=== PATIENT | female | born 1930 | race Caucasian/White ===

== ENCOUNTER → 2016-05-17 | Outpatient (CLI) | payer MEDICARE, BC ==
[~2016-05-17] MED LIST: ALDACTONE50 MG PO; ALMACONE 360 M360 ML PO; ANTIVERT 12.512.5 MG PO; ANUSOL-HC SUPPO25 MG RC; ASPIRIN 81M81 MG/TA2 PO; CARDIZEM CD 12120 MG PO; CARDURA 1MG1 MG PO; CARDURA 2MG2 MG PO; CORDARONE200 MG/TAB PO; DIOVAN HCT 25 M1 TA1 PO; DULCOLAX S10 MG/SUPP RC; FERROUS SU325 MG/TAB PO; FOSAMAX 70MG TA70 MG PO; HCTZ12.5TAB PO; IMODIUM 2MG CAPS2 MG PO; LASIX 20MG TABL20 MG PO; LOPRESSOR100 MG PO; MILK OF MA400 MG/52; NEURONTIN300 MG/CAP PO; NORVASC 5MG5 MG/TAB PO; PACERONE200 MG PO; PROAIR HFA0.09 MG/AC IH; PROTONIX 40MG T40 MG PO; SYNTHROID0.05 MG/TA PO; TOPROL XL100 MG PO; TRIAMC 0.1 454 TOP; TYLENOL 325MG325 MG PO; TYLENOL SU650 MG/SUP RC; XALATAN EYE DROPS OU; XARELTO STARTER20 MG PO; XARELTO20 MG PO; ZOFRAN ODT4 MG PO
== END ==
LOC: COL.VAS 12:36
DX: I87.2 Venous insufficiency (chronic) (peripheral) (principal); M79.662 Pain in left lower leg; M79.661 Pain in right lower leg; M79.89 Other specified soft tissue disorders

== ENCOUNTER 2016-06-18 17:55 | Inpatient (IN) | payer MEDICARE, BC ==
[~2016-06-18] VITALS: Ht 157.5 cm; Wt 78.4 kg
[2016-06-18] VITALS (118 sets, daily range): BP systolic 108; BP diastolic 91; PULSE 107; TEMP 97.6; O2SAT 90–96
[~2016-06-18 17:55] MED LIST changes: -ALDACTONE50 MG PO; -ALMACONE 360 M360 ML PO; -ANTIVERT 12.512.5 MG PO; -ANUSOL-HC SUPPO25 MG RC; -CARDIZEM CD 12120 MG PO; -CARDURA 1MG1 MG PO; -CORDARONE200 MG/TAB PO; -DULCOLAX S10 MG/SUPP RC; -FERROUS SU325 MG/TAB PO; -FOSAMAX 70MG TA70 MG PO; -HCTZ12.5TAB PO; -IMODIUM 2MG CAPS2 MG PO; -LASIX 20MG TABL20 MG PO; -LOPRESSOR100 MG PO; -MILK OF MA400 MG/52; -NEURONTIN300 MG/CAP PO; -PACERONE200 MG PO; -PROAIR HFA0.09 MG/AC IH; -PROTONIX 40MG T40 MG PO; -SYNTHROID0.05 MG/TA PO; -TRIAMC 0.1 454 TOP; -TYLENOL 325MG325 MG PO; -TYLENOL SU650 MG/SUP RC; -XARELTO STARTER20 MG PO; -XARELTO20 MG PO; -ZOFRAN ODT4 MG PO
[2016-06-18 18:41] LABS: BASO % 0.2 % (0.0-2.0); EOS # 0.1 (0.0-0.7); EOS % 0.8 % (0-4.0); GRAN # 7.9 (1.4-6.5); GRAN % 70.2 % (42.2-75.2); HEMATOCRIT 39.4 % (37.0-47.0); HEMOGLOBIN 12.8 g/dl (12.5-16.0); LYMPH # 2.1 (1.2-3.4); LYMPH % 18.3 % (20.0-51.0); MEAN CELL VOLUME 89 fl (80.0-100.0); MEAN CORPUSCULAR HEMOGLOBIN 29 pg (27.0-31.0); MEAN CORPUSCULAR HGB CONC 33 g/dl (33.0-37.0); MEAN PLATELET VOLUME 12.3 fl (7.4-10.4); MONO # 1.1 (0.1-0.6); MONO % 10.1 % (1.7-9.3); PLATELET COUNT 162 K/mm3 (130-400); RED BLOOD COUNT 4.44 M/mm3 (4.10-5.30); REDCELL DISTRIBUTION WIDTH-CV 16.4 % (11.5-14.5); WHITE BLOOD COUNT 11.2 K/mm3 (4.8-10.8)
[2016-06-18 18:45] LABS: INR 1.5 (0.8-3.0); PROTHROMBIN TIME 16.5 SECONDS (9.7-12.8)
[2016-06-18 18:48] LABS: PARTIAL THROMBOPLASTIN TIME 30.5 SECONDS (26.0-37.0)
[2016-06-18 18:52] LABS: ALBUMIN 3.9 gm/dL (3.5-5.0); BILIRUBIN,TOTAL 1.2 mg/dL (0.0-1.0); CALCIUM 8.9 mg/dL (8.4-10.2); CREATININE, serum 1.24 mg/dL (0.52-1.25); POTASSIUM 4.5 mmol/L (3.4-5.0); TOTAL PROTEIN 7.9 gm/dL (6.4-8.2)
[2016-06-18] MEDS ORDERED: SYNTHROID0.05 MG/TA PO (18:54)
[2016-06-18] MEDS ORDERED: LOPRESSOR100 MG PO (18:54)
[2016-06-18] MEDS ORDERED: CARDURA 1MG1 MG PO (18:55)
[2016-06-18] MEDS ORDERED: ALDACTONE50 MG PO (18:56)
[2016-06-18] MEDS ORDERED: FOSAMAX 70MG TA70 MG PO (18:56)
[2016-06-18 19:06] LABS: TROPONIN-I 0.057 ng/mL (0.000-0.034)
[2016-06-18 19:22] LABS: THYROID STIMULATING HORMONE 2.55 uIU/mL (0.465-4.680)
[2016-06-18 23:26] LABS: PH 5 (5-8); URINE APPEARANCE Clear; URINE BACTERIA None Seen /hpf; URINE BILIRUBIN Negative (NEGATIVE); URINE BLOOD 1+ (NEGATIVE); URINE COLOR Yellow; URINE GLUCOSE Negative (NEGATIVE); URINE KETONE Negative (NEGATIVE); URINE UROBILINOGEN Negative (NEGATIVE)
[2016-06-19] VITALS (705 sets, daily range): BP systolic 92–145; BP diastolic 54–92; PULSE 97–130; TEMP 97.6–98.7; O2SAT 77–98
[2016-06-19 06:24] LABS: INR 1.4 (0.8-3.0); PROTHROMBIN TIME 15.8 SECONDS (9.7-12.8)
[2016-06-19 06:31] LABS: CALCIUM 9.1 mg/dL (8.4-10.2); CREATININE, serum 0.97 mg/dL (0.52-1.25); POTASSIUM 4.3 mmol/L (3.4-5.0)
[2016-06-19] MEDS ORDERED: TRIAMC 0.1 454 TOP (23:08)
[2016-06-20] VITALS (474 sets, daily range): BP systolic 109–140; BP diastolic 51–104; PULSE 59–113; TEMP 97.4–98.3; O2SAT 74–100
[2016-06-20 06:00] LABS: BASO % 0.2 % (0.0-2.0); EOS # 0.2 (0.0-0.7); EOS % 2.4 % (0-4.0); GRAN # 5.3 (1.4-6.5); GRAN % 64.5 % (42.2-75.2); LYMPH # 1.8 (1.2-3.4); LYMPH % 22.1 % (20.0-51.0); MEAN CELL VOLUME 91 fl (80.0-100.0); MEAN CORPUSCULAR HEMOGLOBIN 29 pg (27.0-31.0); MEAN CORPUSCULAR HGB CONC 32 g/dl (33.0-37.0); MEAN PLATELET VOLUME 11.4 fl (7.4-10.4); MONO # 0.8 (0.1-0.6); MONO % 10.2 % (1.7-9.3); PLATELET COUNT 167 K/mm3 (130-400); RED BLOOD COUNT 4.09 M/mm3 (4.10-5.30); REDCELL DISTRIBUTION WIDTH-CV 16.5 % (11.5-14.5); WHITE BLOOD COUNT 8.2 K/mm3 (4.8-10.8)
[2016-06-20 06:01] LABS: HEMOGLOBIN 11.7 g/dl (12.5-16.0)
[2016-06-20 06:11] LABS: CALCIUM 8.6 mg/dL (8.4-10.2); CREATININE, serum 1.02 mg/dL (0.52-1.25); POTASSIUM 4.1 mmol/L (3.4-5.0)
[2016-06-20 06:59] LABS: INR 1.6 (0.8-3.0); PROTHROMBIN TIME 17.5 SECONDS (9.7-12.8)
[2016-06-21] VITALS (1125 sets, daily range): BP systolic 119–156; BP diastolic 64–86; PULSE 58–85; TEMP 97.4–98.1; O2SAT 76–97
[2016-06-21 07:01] LABS: BASO % 0.4 % (0.0-2.0); EOS # 0.2 (0.0-0.7); EOS % 2.6 % (0-4.0); GRAN % 64.7 % (42.2-75.2); HEMATOCRIT 37.2 % (37.0-47.0); LYMPH # 1.8 (1.2-3.4); LYMPH % 22.7 % (20.0-51.0); MEAN CELL VOLUME 92 fl (80.0-100.0); MEAN CORPUSCULAR HEMOGLOBIN 29 pg (27.0-31.0); MEAN CORPUSCULAR HGB CONC 32 g/dl (33.0-37.0); MEAN PLATELET VOLUME 12.1 fl (7.4-10.4); MONO # 0.7 (0.1-0.6); PLATELET COUNT 187 K/mm3 (130-400); RED BLOOD COUNT 4.06 M/mm3 (4.10-5.30); REDCELL DISTRIBUTION WIDTH-CV 16.5 % (11.5-14.5); WHITE BLOOD COUNT 7.8 K/mm3 (4.8-10.8)
[2016-06-21 07:02] LABS: INR 2.4 (0.8-3.0); PROTHROMBIN TIME 27.2 SECONDS (9.7-12.8)
[2016-06-21 07:05] LABS: HEMOGLOBIN 11.7 g/dl (12.5-16.0)
[2016-06-21 07:07] LABS: CALCIUM 8.7 mg/dL (8.4-10.2); CREATININE, serum 1.04 mg/dL (0.52-1.25); POTASSIUM 4.1 mmol/L (3.4-5.0)
[2016-06-22] VITALS (661 sets, daily range): BP systolic 122–166; BP diastolic 62–83; PULSE 67–97; TEMP 97.1–100.5; O2SAT 70–100
[2016-06-22 05:58] LABS: INR 2.9 (0.8-3.0); PROTHROMBIN TIME 33.6 SECONDS (9.7-12.8)
[2016-06-22 11:51] LABS: ARTERIAL BLD GAS O2 SATURATION 95.5 % (92-100); ARTERIAL BLD GAS TCO2 CT 27.7; ARTERIAL BLOOD GAS BASE EXCESS 0.3 (-2-2); ARTERIAL BLOOD GAS HCO3 26.3 meq/L (22-26); ARTERIAL BLOOD GAS PO2 83.9 mmHg (80-100); ARTERIAL BLOOD GAS pH 7.36 (7.35-7.45); OXYHEMOGLOBIN 94.8 %
[2016-06-22 11:52] LABS: ATS? YES
[2016-06-23] VITALS (1082 sets, daily range): BP systolic 127–171; BP diastolic 56–80; PULSE 79–89; TEMP 97–98.7; O2SAT 86–99
[2016-06-23 05:57] LABS: PROTHROMBIN TIME 58.4 SECONDS (9.7-12.8)
[2016-06-24] VITALS (1025 sets, daily range): BP systolic 118–149; BP diastolic 61–75; PULSE 68–82; TEMP 97.5–98.9; O2SAT 45–100
[2016-06-24 01:48] LABS: PH 5 (5-8); URINE APPEARANCE Hazy; URINE BACTERIA None Seen /hpf; URINE BILIRUBIN Negative (NEGATIVE); URINE BLOOD Negative (NEGATIVE); URINE COLOR Yellow; URINE GLUCOSE Negative (NEGATIVE); URINE KETONE Negative (NEGATIVE); URINE UROBILINOGEN >=4.0 mg/dL (NEGATIVE)
[2016-06-24 07:23] LABS: INR 3.8 (0.8-3.0); PROTHROMBIN TIME 44.2 SECONDS (9.7-12.8)
[2016-06-25] VITALS (539 sets, daily range): BP systolic 97–171; BP diastolic 61–88; PULSE 66–100; TEMP 97.6–98.6; O2SAT 31–100
[2016-06-25 06:22] LABS: HEMATOCRIT 41.1 % (37.0-47.0); HEMOGLOBIN 12.9 g/dl (12.5-16.0); MEAN CELL VOLUME 91 fl (80.0-100.0); MEAN CORPUSCULAR HEMOGLOBIN 29 pg (27.0-31.0); MEAN CORPUSCULAR HGB CONC 31 g/dl (33.0-37.0); MEAN PLATELET VOLUME 10.9 fl (7.4-10.4); PLATELET COUNT 248 K/mm3 (130-400); RED BLOOD COUNT 4.53 M/mm3 (4.10-5.30); REDCELL DISTRIBUTION WIDTH-CV 16.3 % (11.5-14.5); WHITE BLOOD COUNT 9.7 K/mm3 (4.8-10.8)
[2016-06-25 06:25] LABS: ADD PATHOLOGY DIFF REVIEW NO
[2016-06-25 06:31] LABS: INR 2.5 (0.8-3.0); PROTHROMBIN TIME 28.8 SECONDS (9.7-12.8)
[2016-06-25 06:33] LABS: ADJUSTED CALCIUM 9.6 mg/dL (8.4-10.2); ALBUMIN 3.4 gm/dL (3.5-5.0); BILIRUBIN,TOTAL 0.8 mg/dL (0.0-1.0); CALCIUM 9.1 mg/dL (8.4-10.2); CREATININE, serum 1.03 mg/dL (0.52-1.25); TOTAL PROTEIN 7.5 gm/dL (6.4-8.2)
[2016-06-25 09:11] LABS: BAND 2 % (0-10); BASOPHIL 1 % (0-2); EOSINOPHIL 3 % (0-4); METAMYELOCYTE 1 % (0-0); MYELOCYTE 2 % (0-0); NEUTROPHILS 71 % (42.0-75.2); PLATELET ESTIMATE NORMAL (NORMAL); TOTAL CELLS COUNTED 100
[2016-06-25 09:13] LABS: ANISOCYTOSIS 1+; POLYCHROMASIA 1+
[2016-06-26] VITALS (7 sets, daily range): BP systolic 124–154; BP diastolic 56–70; PULSE 67–116; TEMP 97.2–98.8
[2016-06-27 03:01] VITALS: BP 118/63; PULSE 79; TEMP 98.5
[2016-06-27 08:53] VITALS: BP 135/69; PULSE 78; TEMP 96.4
[2016-06-27 12:33] VITALS: BP 142/79; PULSE 68; TEMP 96.5
[2016-06-27 16:03] VITALS: BP 147/69; PULSE 79; TEMP 98.1
[2016-06-27 19:52] VITALS: BP 141/66; PULSE 75; TEMP 97.5
[2016-06-27 23:26] VITALS: BP 121/58; PULSE 73; TEMP 97.9
[2016-06-28 03:47] VITALS: BP 144/63; PULSE 65; TEMP 97.7
[2016-06-28 08:42] VITALS: BP 144/71; PULSE 83; TEMP 98.7
[2016-06-28 12:24] VITALS: BP 133/62; PULSE 76; TEMP 96
[2016-06-28 12:54] LABS: HEMATOCRIT 42.7 % (37.0-47.0); HEMOGLOBIN 13.7 g/dl (12.5-16.0); MEAN CELL VOLUME 89 fl (80.0-100.0); MEAN CORPUSCULAR HEMOGLOBIN 29 pg (27.0-31.0); MEAN CORPUSCULAR HGB CONC 32 g/dl (33.0-37.0); MEAN PLATELET VOLUME 10.7 fl (7.4-10.4); PLATELET COUNT 266 K/mm3 (130-400); RED BLOOD COUNT 4.81 M/mm3 (4.10-5.30); REDCELL DISTRIBUTION WIDTH-CV 16.2 % (11.5-14.5); WHITE BLOOD COUNT 8.8 K/mm3 (4.8-10.8)
[2016-06-28 12:56] LABS: ADD PATHOLOGY DIFF REVIEW NO
[2016-06-28 12:57] LABS: CALCIUM 9.3 mg/dL (8.4-10.2); CREATININE, serum 1.04 mg/dL (0.52-1.25); MAGNESIUM 1.9 mg/dL (1.6-2.3)
[2016-06-28 13:32] LABS: BAND 2 % (0-10); BASOPHIL 1 % (0-2); EOSINOPHIL 1 % (0-4); NEUTROPHILS 72 % (42.0-75.2); TOTAL CELLS COUNTED 100
[2016-06-28 13:35] LABS: HYPOCHROMIA 1+; MICROCYTOSIS 1+; POLYCHROMASIA 1+; STOMATOCYTE 1+
[2016-06-28 15:32] VITALS: BP 139/76; PULSE 70; TEMP 96.5
[2016-06-28 19:55] VITALS: BP 145/67; PULSE 71; TEMP 97.8
[2016-06-28 23:49] VITALS: BP 133/60; PULSE 64; TEMP 97.4
[2016-06-29 03:45] VITALS: BP 129/58; PULSE 46; TEMP 98.5
[2016-06-29 07:15] VITALS: BP 129/81; PULSE 85; TEMP 96.3
[2016-06-29 11:33] VITALS: BP 147/72; PULSE 42; TEMP 97.6
[2016-06-29 15:58] VITALS: BP 137/69; PULSE 76; TEMP 97.2
[2016-06-29 20:30] VITALS: BP 122/45; PULSE 80; TEMP 98
[2016-06-29 23:55] VITALS: BP 125/44; PULSE 38; TEMP 98.2
[2016-06-30 03:17] VITALS: BP 158/85; PULSE 55; TEMP 97.6
[2016-06-30 07:35] VITALS: BP 146/42; PULSE 40; TEMP 98.2
[2016-06-30 11:37] VITALS: BP 105/79; PULSE 81; TEMP 97.7
[2016-06-30 14:53] VITALS: BP 113/87; PULSE 105; TEMP 97.3
[2016-06-30 20:32] VITALS: BP 150/58; PULSE 63; TEMP 97.4
[2016-07-01 00:46] VITALS: BP 127/62; PULSE 67; TEMP 97.6
[2016-07-01 05:44] VITALS: BP 142/75; PULSE 70; TEMP 97.9
[2016-07-01 07:32] VITALS: BP 143/61; PULSE 62; TEMP 96.8
[2016-07-01 11:02] VITALS: BP 136/60; PULSE 68
[2016-07-01] MEDS ORDERED: PACERONE200 MG PO (15:37)
[2016-07-01] MEDS ORDERED: CARDIZEM CD 12120 MG PO (15:39)
[2016-07-01] MEDS ORDERED: LASIX 20MG TABL20 MG PO (15:44)
[2016-07-01] MEDS ORDERED: XARELTO STARTER20 MG PO (15:49)
[2016-07-01] MEDS ORDERED: PROAIR HFA0.09 MG/AC IH (15:58)
[2016-07-01 16:16] VITALS: BP 136/60; PULSE 68; TEMP 96.8
[2016-07-03 14:13] LABS: FACTOR V LEIDEN MUTATION B Negative (Negative); PT G20210A MUTATION B Negative (Negative)
[2016-07-04 14:23] LABS: .ANTICARDIOLIPIN IGG <9.4 GPL (()); .ANTICARDIOLIPIN IGM 10.6 MPL (())
[2016-07-05 19:13] LABS: BETA-2 GPI IGM AABS 10.3 U/mL (())
[2016-07-05 19:17] LABS: BETA-2 GPI IGG AABS <9.4 U/mL (())
[2016-07-20] MEDS ORDERED: ZOFRAN ODT4 MG PO (10:47)
[2016-07-20] MEDS ORDERED: ANTIVERT 12.512.5 MG PO (10:48)
[2016-07-20] MEDS ORDERED: CARDIZEM CD 12120 MG PO (10:50)
[2016-07-20] MEDS ORDERED: XARELTO20 MG PO (10:50)
[2016-07-20] MEDS ORDERED: CORDARONE200 MG/TAB PO (10:50)
== END 2016-07-01 17:09 | DRG 175 ==
LOC: COL.ER 17:55 → IMCU 19:20 → ICU 19:20 → IMCU 20:30 → ICU 06-22 16:00 → IMCU 06-23 14:17 → MEDICAL 06-25 15:55
PROVIDERS: Family Medicine; Internal Medicine; Internal Medicine Interventional Cardiology
PROC: 5A2204Z Restoration of Cardiac Rhythm, Single (ICD-10-PCS; principal; 2016-06-20)
DX: I26.99 Other pulmonary embolism without acute cor pulmonale (principal); J96.01 Acute respiratory failure with hypoxia; I50.33 Acute on chronic diastolic (congestive) heart failure; I82.431 Acute embolism and thrombosis of right popliteal vein; I48.92 Unspecified atrial flutter; Z66 Do not resuscitate; I48.91 Unspecified atrial fibrillation; I11.0 Hypertensive heart disease with heart failure; K76.1 Chronic passive congestion of liver; E88.09 Other disorders of plasma-protein metabolism, not elsewhere classified
CPT/HCPCS: 99223-AI; 99232-AI; 99233-AI; 99239; A9284; G9654; J0282; J1650; J2704; J2765; J7050; J7060; Q9967

== ENCOUNTER 2016-07-09 11:13 | Emergency (ER) | payer MEDICARE, BC ==
[~2016-07-09] VITALS: Ht 157.5 cm; Wt 81.4 kg
[2016-07-09 11:13] VITALS: TEMP 97
[~2016-07-09 11:13] MED LIST changes: +ALDACTONE50 MG PO; +CARDIZEM CD 12120 MG PO; +CARDURA 1MG1 MG PO; +FOSAMAX 70MG TA70 MG PO; +LASIX 20MG TABL20 MG PO; +LOPRESSOR100 MG PO; +PACERONE200 MG PO; +PROAIR HFA0.09 MG/AC IH; +SYNTHROID0.05 MG/TA PO; +TRIAMC 0.1 454 TOP; +XARELTO STARTER20 MG PO
[2016-07-09 12:14] LABS: ADJUSTED CALCIUM 9.1 mg/dL (8.4-10.2); ALANINE AMINOTRANSFERASE 38 U/L (9-52); ALBUMIN 3.7 gm/dL (3.5-5.0); ALKALINE PHOSPHATASE 64 U/L (50-136); ANION GAP 12 mmol/L (7-16); BASO % 0.4 % (0.0-2.0); BILIRUBIN,TOTAL 0.8 mg/dL (0.0-1.0); BLOOD UREA NITROGEN 14 mg/dL (7-17); CALCIUM 8.9 mg/dL (8.4-10.2); CARBON DIOXIDE 27 mmol/L (22-30); CHLORIDE 103 mmol/L (98-107); CREATININE, serum 0.86 mg/dL (0.52-1.25); EOS # 0.1 (0.0-0.7); EOS % 1.3 % (0-4.0); GLUCOSE 137 mg/dL (74-106); GRAN # 5.5 (1.4-6.5); GRAN % 77.8 % (42.2-75.2); MAGNESIUM 1.6 mg/dL (1.6-2.3); MEAN CELL VOLUME 90 fl (80.0-100.0); MEAN CORPUSCULAR HGB CONC 32 g/dl (33.0-37.0); MONO # 0.4 (0.1-0.6); MONO % 5.6 % (1.7-9.3); PHOSPHOROUS 3.5 mg/dL (2.5-4.5); PLATELET COUNT 162 K/mm3 (130-400); RED BLOOD COUNT 3.96 M/mm3 (4.10-5.30); REDCELL DISTRIBUTION WIDTH-CV 17.5 % (11.5-14.5); SODIUM 142 mmol/L (137-145); TOTAL PROTEIN 7.7 gm/dL (6.4-8.2)
[2016-07-09 12:15] LABS: HEMATOCRIT 35.8 % (37.0-47.0); HEMOGLOBIN 11.4 g/dl (12.5-16.0); MEAN CORPUSCULAR HEMOGLOBIN 29 pg (27.0-31.0)
[2016-07-09 12:26] LABS: B-TYPE NATRIURETIC PEPTIDE 849 pg/mL (0-450)
[2016-07-09 12:27] LABS: TROPONIN-I < 0.012 ng/mL (0.000-0.034)
[2016-07-09 12:35] LABS: INR 3.2 (0.8-3.0)
[2016-07-09 12:37] LABS: PARTIAL THROMBOPLASTIN TIME 41.4 SECONDS (26.0-37.0)
[2016-07-09] MEDS ORDERED: PROAIR HFA0.09 MG/AC IH (12:38)
[2016-07-09] MEDS ORDERED: ALMACONE 360 M360 ML PO (12:39)
[2016-07-09] MEDS ORDERED: ALDACTONE50 MG PO (12:39)
[2016-07-09] MEDS ORDERED: MILK OF MA400 MG/52 (12:39)
[2016-07-09] MEDS ORDERED: TYLENOL SU650 MG/SUP RC (12:40)
[2016-07-09] MEDS ORDERED: DULCOLAX S10 MG/SUPP RC (12:40)
[2016-07-09] MEDS ORDERED: TYLENOL 325MG325 MG PO (12:41)
[2016-07-09] MEDS ORDERED: IMODIUM 2MG CAPS2 MG PO (12:41)
[2016-07-09 13:46] LABS: PH 5 (5-8); SQUAMOUS EPITHELIAL 0-2 /hpf; URINE APPEARANCE Clear; URINE BACTERIA None Seen /hpf; URINE BILIRUBIN Negative (NEGATIVE); URINE BLOOD 1+ (NEGATIVE); URINE COLOR Yellow; URINE GLUCOSE Negative (NEGATIVE); URINE KETONE Negative (NEGATIVE); URINE RBC 0-2 /hpf; URINE UROBILINOGEN Negative (NEGATIVE); URINE WBC 0-2 /hpf
[2016-07-09] MEDS ORDERED: ZOFRAN ODT4 MG PO (16:09)
[2016-07-09] MEDS ORDERED: ANTIVERT 12.512.5 MG PO (16:09)
[2016-07-09 16:44] VITALS: BP 161/83; PULSE 66
[2016-07-20] MEDS ORDERED: ZOFRAN ODT4 MG PO (10:47)
[2016-07-20] MEDS ORDERED: ANTIVERT 12.512.5 MG PO (10:48)
[2016-07-20] MEDS ORDERED: XARELTO20 MG PO (10:50)
[2016-07-20] MEDS ORDERED: CORDARONE200 MG/TAB PO (10:50)
[2016-07-20] MEDS ORDERED: CARDIZEM CD 12120 MG PO (10:50)
== END 2016-07-09 16:43 | disposition home or self-care (01) ==
LOC: COL.ER 11:13
PROVIDERS: Emergency Medicine
DX: R42 Dizziness and giddiness (principal); R11.2 Nausea with vomiting, unspecified; Z86.711 Personal history of pulmonary embolism; Z79.01 Long term (current) use of anticoagulants; I48.91 Unspecified atrial fibrillation; I50.9 Heart failure, unspecified
CPT/HCPCS: J2405

== ENCOUNTER → 2016-07-20 | Outpatient (CLI) | payer MEDICARE, BC ==
[~2016-07-20] MED LIST changes: +ALMACONE 360 M360 ML PO; +ANTIVERT 12.512.5 MG PO; +ANUSOL-HC SUPPO25 MG RC; +CORDARONE200 MG/TAB PO; +DULCOLAX S10 MG/SUPP RC; +FERROUS SU325 MG/TAB PO; +HCTZ12.5TAB PO; +IMODIUM 2MG CAPS2 MG PO; +MILK OF MA400 MG/52; +NEURONTIN300 MG/CAP PO; +PROTONIX 40MG T40 MG PO; +TYLENOL 325MG325 MG PO; +TYLENOL SU650 MG/SUP RC; +XARELTO20 MG PO; +ZOFRAN ODT4 MG PO
== END ==
LOC: COL.RAD 09:55
DX: Z86.718 Personal history of other venous thrombosis and embolism (principal); Z86.711 Personal history of pulmonary embolism
CPT/HCPCS: Q9967

== ENCOUNTER 2016-07-27 11:24 | Inpatient (IN) | payer MEDICARE, BC ==
[2016-07-27] VITALS (125 sets, daily range): BP systolic 109–135; BP diastolic 40–72; PULSE 83–139; TEMP 96.8–98.1; O2SAT 88–100
[~2016-07-27] VITALS: Ht 157.5 cm; Wt 78.0 kg
[~2016-07-27 11:24] MED LIST changes: -ANUSOL-HC SUPPO25 MG RC; -FERROUS SU325 MG/TAB PO; -HCTZ12.5TAB PO; -NEURONTIN300 MG/CAP PO; -PROTONIX 40MG T40 MG PO
[2016-07-27 13:37] LABS: MEAN CELL VOLUME 94 fl (80.0-100.0); MEAN CORPUSCULAR HGB CONC 32 g/dl (33.0-37.0); MEAN PLATELET VOLUME 10.8 fl (7.4-10.4); PLATELET COUNT 236 K/mm3 (130-400); RED BLOOD COUNT 2.57 M/mm3 (4.10-5.30); REDCELL DISTRIBUTION WIDTH-CV 19.7 % (11.5-14.5); WHITE BLOOD COUNT 11.7 K/mm3 (4.8-10.8)
[2016-07-27 13:40] LABS: INR 1.8 (0.8-3.0); PROTHROMBIN TIME 20.4 SECONDS (9.7-12.8)
[2016-07-27 13:42] LABS: HEMATOCRIT 24.1 % (37.0-47.0); HEMOGLOBIN 7.7 g/dl (12.5-16.0); MEAN CORPUSCULAR HEMOGLOBIN 30 pg (27.0-31.0)
[2016-07-27 13:57] LABS: ADJUSTED CALCIUM 8.8 mg/dL (8.4-10.2); ALBUMIN 3.7 gm/dL (3.5-5.0); BILIRUBIN,TOTAL 0.6 mg/dL (0.0-1.0); CALCIUM 8.6 mg/dL (8.4-10.2); CREATININE, serum 1.62 mg/dL (0.52-1.25); TOTAL PROTEIN 6.9 gm/dL (6.4-8.2)
[2016-07-27 16:18] LABS: HYALINE CAST >12 /lpf; PH 5 (5-8); SQUAMOUS EPITHELIAL 0-2 /hpf; URINE APPEARANCE Hazy; URINE BACTERIA Rare /hpf; URINE BILIRUBIN Negative (NEGATIVE); URINE BLOOD Negative (NEGATIVE); URINE COLOR Yellow; URINE GLUCOSE Negative (NEGATIVE); URINE KETONE Negative (NEGATIVE); URINE RBC 0-2 /hpf; URINE UROBILINOGEN Negative (NEGATIVE)
[2016-07-27 17:02] LABS: HEMOGLOBIN 7.3 g/dl (12.5-16.0)
[2016-07-27 17:03] LABS: HEMATOCRIT 23.8 % (37.0-47.0)
[2016-07-28] VITALS (490 sets, daily range): BP systolic 98–143; BP diastolic 55–101; PULSE 68–129; TEMP 96.7–97.4; O2SAT 85–100
[2016-07-28 01:02] LABS: HEMATOCRIT 21.8 % (37.0-47.0); HEMOGLOBIN 6.7 g/dl (12.5-16.0)
[2016-07-28 06:23] LABS: HEMATOCRIT 26.1 % (37.0-47.0); HEMOGLOBIN 8.1 g/dl (12.5-16.0)
[2016-07-28 12:35] LABS: HEMATOCRIT 26.2 % (37.0-47.0); HEMOGLOBIN 8.1 g/dl (12.5-16.0)
[2016-07-28 14:47] LABS: INR 1.3 (0.8-3.0); PROTHROMBIN TIME 14.7 SECONDS (9.7-12.8)
[2016-07-29] VITALS (616 sets, daily range): BP systolic 110–153; BP diastolic 58–76; PULSE 55–112; TEMP 97.3–98.3; O2SAT 72–100
[2016-07-29 06:02] LABS: MEAN CELL VOLUME 98 fl (80.0-100.0); MEAN CORPUSCULAR HGB CONC 30 g/dl (33.0-37.0); MEAN PLATELET VOLUME 10.6 fl (7.4-10.4); PLATELET COUNT 183 K/mm3 (130-400); RED BLOOD COUNT 2.48 M/mm3 (4.10-5.30); REDCELL DISTRIBUTION WIDTH-CV 19.1 % (11.5-14.5); WHITE BLOOD COUNT 12.5 K/mm3 (4.8-10.8)
[2016-07-29 06:16] LABS: CALCIUM 7.2 mg/dL (8.4-10.2); CREATININE, serum 1.06 mg/dL (0.52-1.25); HEMATOCRIT 24.4 % (37.0-47.0); HEMOGLOBIN 7.4 g/dl (12.5-16.0); MEAN CORPUSCULAR HEMOGLOBIN 30 pg (27.0-31.0); POTASSIUM 4.8 mmol/L (3.4-5.0)
[2016-07-29 06:17] LABS: ADD PATHOLOGY DIFF REVIEW NO
[2016-07-29 06:52] LABS: ANISOCYTOSIS 1+; BAND 16 % (0-10); METAMYELOCYTE 1 % (0-0); NEUTROPHILS 79 % (42.0-75.2); PLATELET ESTIMATE NORMAL (NORMAL); TOTAL CELLS COUNTED 100
[2016-07-30] VITALS (20 sets, daily range): BP systolic 84–115; BP diastolic 47–70; PULSE 63–131; TEMP 97.3–99
[2016-07-30 03:12] LABS: BASO % 0.2 % (0.0-2.0); EOS % 0.1 % (0-4.0); GRAN % 78.1 % (42.2-75.2); LYMPH # 1.6 (1.2-3.4); LYMPH % 13.7 % (20.0-51.0); MEAN CELL VOLUME 99 fl (80.0-100.0); MEAN CORPUSCULAR HGB CONC 30 g/dl (33.0-37.0); MEAN PLATELET VOLUME 9.9 fl (7.4-10.4); MONO # 0.8 (0.1-0.6); PLATELET COUNT 185 K/mm3 (130-400); RED BLOOD COUNT 2.39 M/mm3 (4.10-5.30); REDCELL DISTRIBUTION WIDTH-CV 19.3 % (11.5-14.5); WHITE BLOOD COUNT 11.5 K/mm3 (4.8-10.8)
[2016-07-30 03:13] LABS: HEMATOCRIT 23.6 % (37.0-47.0); HEMOGLOBIN 7.1 g/dl (12.5-16.0); MEAN CORPUSCULAR HEMOGLOBIN 30 pg (27.0-31.0)
[2016-07-30 03:20] LABS: CALCIUM 7.6 mg/dL (8.4-10.2); CREATININE, serum 1.17 mg/dL (0.52-1.25); POTASSIUM 4.6 mmol/L (3.4-5.0)
[2016-07-31] VITALS (7 sets, daily range): BP systolic 90–118; BP diastolic 59–97; PULSE 132–135; TEMP 97.7–98.1
[2016-07-31 10:59] LABS: BASO % 0.1 % (0.0-2.0); EOS # 0.1 (0.0-0.7); EOS % 1.1 % (0-4.0); GRAN # 6.7 (1.4-6.5); GRAN % 75.2 % (42.2-75.2); LYMPH # 1.6 (1.2-3.4); LYMPH % 17.5 % (20.0-51.0); MEAN CELL VOLUME 99 fl (80.0-100.0); MEAN CORPUSCULAR HGB CONC 31 g/dl (33.0-37.0); MEAN PLATELET VOLUME 10.5 fl (7.4-10.4); MONO # 0.5 (0.1-0.6); MONO % 5.5 % (1.7-9.3); PLATELET COUNT 172 K/mm3 (130-400); RED BLOOD COUNT 2.61 M/mm3 (4.10-5.30); REDCELL DISTRIBUTION WIDTH-CV 18.5 % (11.5-14.5); WHITE BLOOD COUNT 8.9 K/mm3 (4.8-10.8)
[2016-07-31 11:02] LABS: HEMATOCRIT 25.7 % (37.0-47.0); MEAN CORPUSCULAR HEMOGLOBIN 31 pg (27.0-31.0)
[2016-07-31 11:18] LABS: CALCIUM 8.1 mg/dL (8.4-10.2); CREATININE, serum 1.19 mg/dL (0.52-1.25)
[2016-08-01] VITALS (16 sets, daily range): BP systolic 91–118; BP diastolic 46–72; PULSE 79–139; TEMP 97.7–98.4
[2016-08-01 03:30] LABS: BASO % 0.2 % (0.0-2.0); EOS # 0.1 (0.0-0.7); GRAN # 8.6 (1.4-6.5); GRAN % 67.4 % (42.2-75.2); LYMPH # 3.2 (1.2-3.4); LYMPH % 24.8 % (20.0-51.0); MEAN CELL VOLUME 99 fl (80.0-100.0); MEAN CORPUSCULAR HGB CONC 31 g/dl (33.0-37.0); MEAN PLATELET VOLUME 10.3 fl (7.4-10.4); MONO # 0.8 (0.1-0.6); MONO % 5.9 % (1.7-9.3); PLATELET COUNT 177 K/mm3 (130-400); RED BLOOD COUNT 2.41 M/mm3 (4.10-5.30); REDCELL DISTRIBUTION WIDTH-CV 18.7 % (11.5-14.5); WHITE BLOOD COUNT 12.8 K/mm3 (4.8-10.8)
[2016-08-01 03:34] LABS: HEMATOCRIT 23.9 % (37.0-47.0); HEMOGLOBIN 7.3 g/dl (12.5-16.0); MEAN CORPUSCULAR HEMOGLOBIN 30 pg (27.0-31.0)
[2016-08-01 03:42] LABS: CREATININE, serum 1.21 mg/dL (0.52-1.25); POTASSIUM 4.6 mmol/L (3.4-5.0)
[2016-08-01 10:07] LABS: HEMATOCRIT 22.2 % (37.0-47.0); HEMOGLOBIN 7.1 g/dl (12.5-16.0)
[2016-08-02 01:40] VITALS: BP 94/45; PULSE 68; TEMP 97.5
[2016-08-02 05:14] VITALS: BP 100/56; PULSE 77; TEMP 97.7
[2016-08-02 06:45] LABS: BASO % 0.2 % (0.0-2.0); EOS # 0.2 (0.0-0.7); EOS % 2.3 % (0-4.0); GRAN % 70.9 % (42.2-75.2); LYMPH # 1.7 (1.2-3.4); LYMPH % 19.8 % (20.0-51.0); MEAN CORPUSCULAR HGB CONC 32 g/dl (33.0-37.0); MEAN PLATELET VOLUME 10.6 fl (7.4-10.4); MONO # 0.5 (0.1-0.6); MONO % 5.4 % (1.7-9.3); PLATELET COUNT 110 K/mm3 (130-400); RED BLOOD COUNT 2.46 M/mm3 (4.10-5.30); REDCELL DISTRIBUTION WIDTH-CV 19.2 % (11.5-14.5); WHITE BLOOD COUNT 8.5 K/mm3 (4.8-10.8)
[2016-08-02 06:57] LABS: CALCIUM 7.5 mg/dL (8.4-10.2); CREATININE, serum 1.01 mg/dL (0.52-1.25); POTASSIUM 4.3 mmol/L (3.4-5.0)
[2016-08-02 07:05] LABS: HEMOGLOBIN 7.4 g/dl (12.5-16.0); MEAN CELL VOLUME 94 fl (80.0-100.0); MEAN CORPUSCULAR HEMOGLOBIN 30 pg (27.0-31.0)
[2016-08-02 09:57] VITALS: BP 120/48; PULSE 54; TEMP 98.7
[2016-08-02 13:49] VITALS: BP 100/50; PULSE 71; TEMP 97.2
[2016-08-02 14:03] LABS: HEMATOCRIT 22.3 % (37.0-47.0)
[2016-08-02 17:38] VITALS: BP 121/71; PULSE 92; TEMP 98.4
[2016-08-02 19:17] LABS: MEAN CELL VOLUME 95 fl (80.0-100.0); MEAN CORPUSCULAR HGB CONC 32 g/dl (33.0-37.0); MEAN PLATELET VOLUME 10.5 fl (7.4-10.4); PLATELET COUNT 120 K/mm3 (130-400); RED BLOOD COUNT 2.64 M/mm3 (4.10-5.30); REDCELL DISTRIBUTION WIDTH-CV 19.7 % (11.5-14.5); WHITE BLOOD COUNT 10.4 K/mm3 (4.8-10.8)
[2016-08-02 19:18] LABS: HEMATOCRIT 25.1 % (37.0-47.0); HEMOGLOBIN 8.1 g/dl (12.5-16.0); MEAN CORPUSCULAR HEMOGLOBIN 31 pg (27.0-31.0)
[2016-08-02 19:37] LABS: ADJUSTED CALCIUM 8.8 mg/dL (8.4-10.2); ALBUMIN 2.8 gm/dL (3.5-5.0); BILIRUBIN,TOTAL 0.6 mg/dL (0.0-1.0); CALCIUM 7.8 mg/dL (8.4-10.2); CREATININE, serum 1.02 mg/dL (0.52-1.25); POTASSIUM 4.1 mmol/L (3.4-5.0); TOTAL PROTEIN 5.4 gm/dL (6.4-8.2)
[2016-08-02 21:09] VITALS: BP 111/54; PULSE 73; TEMP 97.9
[2016-08-03] VITALS (7 sets, daily range): BP systolic 100–125; BP diastolic 44–75; PULSE 72–144; TEMP 97.4–98.5
[2016-08-03 07:37] LABS: BASO % 0.2 % (0.0-2.0); EOS # 0.2 (0.0-0.7); EOS % 2.8 % (0-4.0); GRAN # 6.1 (1.4-6.5); GRAN % 71.5 % (42.2-75.2); LYMPH # 1.6 (1.2-3.4); LYMPH % 18.7 % (20.0-51.0); MEAN CELL VOLUME 96 fl (80.0-100.0); MEAN CORPUSCULAR HGB CONC 31 g/dl (33.0-37.0); MONO # 0.5 (0.1-0.6); MONO % 5.7 % (1.7-9.3); PLATELET COUNT 103 K/mm3 (130-400); RED BLOOD COUNT 2.43 M/mm3 (4.10-5.30); REDCELL DISTRIBUTION WIDTH-CV 19.5 % (11.5-14.5); WHITE BLOOD COUNT 8.6 K/mm3 (4.8-10.8)
[2016-08-03 07:39] LABS: CALCIUM 7.9 mg/dL (8.4-10.2); CREATININE, serum 1.01 mg/dL (0.52-1.25)
[2016-08-03 07:40] LABS: HEMATOCRIT 23.3 % (37.0-47.0); HEMOGLOBIN 7.3 g/dl (12.5-16.0); MEAN CORPUSCULAR HEMOGLOBIN 30 pg (27.0-31.0)
[2016-08-03 15:33] LABS: HEMATOCRIT 24.3 % (37.0-47.0); HEMOGLOBIN 7.7 g/dl (12.5-16.0)
[2016-08-04 01:31] VITALS: BP 99/50; PULSE 88; TEMP 97.4
[2016-08-04 05:39] VITALS: BP 102/44; PULSE 91; TEMP 97.6
[2016-08-04 08:13] LABS: CALCIUM 7.9 mg/dL (8.4-10.2); CREATININE, serum 0.99 mg/dL (0.52-1.25)
[2016-08-04 08:15] LABS: MEAN CELL VOLUME 97 fl (80.0-100.0); MEAN CORPUSCULAR HGB CONC 31 g/dl (33.0-37.0); MEAN PLATELET VOLUME 11.2 fl (7.4-10.4); PLATELET COUNT 93 K/mm3 (130-400); REDCELL DISTRIBUTION WIDTH-CV 20.2 % (11.5-14.5); WHITE BLOOD COUNT 7.2 K/mm3 (4.8-10.8)
[2016-08-04 08:16] LABS: BASO % 0.1 % (0.0-2.0)
[2016-08-04 08:18] LABS: HEMOGLOBIN 7.3 g/dl (12.5-16.0); MEAN CORPUSCULAR HEMOGLOBIN 30 pg (27.0-31.0)
[2016-08-04 08:19] LABS: HEMATOCRIT 23.3 % (37.0-47.0)
[2016-08-04 09:31] VITALS: BP 111/45; PULSE 83; TEMP 96.6
[2016-08-04 11:43] LABS: BAND 9 % (0-10); EOSINOPHIL 6 % (0-4); METAMYELOCYTE 2 % (0-0); MYELOCYTE 1 % (0-0); NEUTROPHILS 69 % (42.0-75.2); PLATELET ESTIMATE DECREASED (NORMAL); TOTAL CELLS COUNTED 100
[2016-08-04 11:46] LABS: ADD PATHOLOGY DIFF REVIEW YES; ANISOCYTOSIS 1+
[2016-08-04 14:06] VITALS: BP 108/44; PULSE 96; TEMP 97.4
[2016-08-04 18:23] VITALS: BP 126/48; PULSE 93; TEMP 98.7
[2016-08-04 22:12] VITALS: BP 109/64; PULSE 94; TEMP 97.8
[2016-08-05] VITALS (12 sets, daily range): BP systolic 106–148; BP diastolic 43–88; PULSE 71–92; TEMP 97.6–98.7
[2016-08-05 06:53] LABS: MEAN CELL VOLUME 100 fl (80.0-100.0); MEAN CORPUSCULAR HGB CONC 31 g/dl (33.0-37.0); MEAN PLATELET VOLUME 11.3 fl (7.4-10.4); PLATELET COUNT 100 K/mm3 (130-400); REDCELL DISTRIBUTION WIDTH-CV 20.4 % (11.5-14.5); WHITE BLOOD COUNT 6.4 K/mm3 (4.8-10.8)
[2016-08-05 06:56] LABS: HEMATOCRIT 21.9 % (37.0-47.0); HEMOGLOBIN 6.7 g/dl (12.5-16.0); MEAN CORPUSCULAR HEMOGLOBIN 30 pg (27.0-31.0)
[2016-08-05 06:57] LABS: ADD PATHOLOGY DIFF REVIEW NO
[2016-08-05 08:11] LABS: PATHOLOGY DIFF REVIEW OK
[2016-08-05 08:35] LABS: BAND 1 % (0-10); EOSINOPHIL 5 % (0-4); HYPOCHROMIA 2+; NEUTROPHILS 71 % (42.0-75.2); POLYCHROMASIA 1+; TOTAL CELLS COUNTED 100
[2016-08-05 08:36] LABS: ANISOCYTOSIS 3+; PLATELET ESTIMATE NORMAL (NORMAL)
[2016-08-06 01:04] VITALS: BP 121/50; PULSE 74; TEMP 98.3
[2016-08-06 05:16] VITALS: BP 121/50; PULSE 73; TEMP 97.4
[2016-08-06 08:01] LABS: MEAN CELL VOLUME 98 fl (80.0-100.0); MEAN CORPUSCULAR HGB CONC 31 g/dl (33.0-37.0); MEAN PLATELET VOLUME 11.6 fl (7.4-10.4); PLATELET COUNT 101 K/mm3 (130-400); RED BLOOD COUNT 2.94 M/mm3 (4.10-5.30); WHITE BLOOD COUNT 6.6 K/mm3 (4.8-10.8)
[2016-08-06 08:20] LABS: HEMATOCRIT 28.8 % (37.0-47.0); MEAN CORPUSCULAR HEMOGLOBIN 31 pg (27.0-31.0)
[2016-08-06 08:21] LABS: ADD PATHOLOGY DIFF REVIEW NO
[2016-08-06 09:30] LABS: BAND 4 % (0-10); BASOPHIL 1 % (0-2); EOSINOPHIL 5 % (0-4); NEUTROPHILS 65 % (42.0-75.2); TOTAL CELLS COUNTED 100
[2016-08-06 09:31] LABS: PLATELET ESTIMATE DECREASED (NORMAL)
[2016-08-06 10:48] VITALS: BP 119/61; PULSE 79; TEMP 97.5
[2016-08-06 14:13] VITALS: BP 113/55; PULSE 74; TEMP 97.6
[2016-08-06 18:18] VITALS: BP 118/53; PULSE 75; TEMP 98.1
[2016-08-06 21:33] VITALS: BP 132/53; PULSE 76; TEMP 97.8
[2016-08-07 01:31] VITALS: BP 128/45; PULSE 72; TEMP 97.9
[2016-08-07 06:10] VITALS: BP 120/88; PULSE 82; TEMP 98.4
[2016-08-07 07:24] LABS: MEAN CELL VOLUME 98 fl (80.0-100.0); MEAN CORPUSCULAR HGB CONC 31 g/dl (33.0-37.0); MEAN PLATELET VOLUME 11.4 fl (7.4-10.4); PLATELET COUNT 124 K/mm3 (130-400); RED BLOOD COUNT 3.09 M/mm3 (4.10-5.30); WHITE BLOOD COUNT 7.8 K/mm3 (4.8-10.8)
[2016-08-07 07:31] LABS: ADD PATHOLOGY DIFF REVIEW NO; HEMATOCRIT 30.3 % (37.0-47.0); HEMOGLOBIN 9.4 g/dl (12.5-16.0); MEAN CORPUSCULAR HEMOGLOBIN 30 pg (27.0-31.0)
[2016-08-07 08:24] LABS: ANISOCYTOSIS 2+; BAND 7 % (0-10); EOSINOPHIL 3 % (0-4); METAMYELOCYTE 1 % (0-0); NEUTROPHILS 71 % (42.0-75.2); TOTAL CELLS COUNTED 100
[2016-08-07 08:25] LABS: PLATELET ESTIMATE NORMAL (NORMAL)
[2016-08-07 09:47] VITALS: BP 109/53; PULSE 78; TEMP 97.4
[2016-08-07 14:42] VITALS: BP 123/49; PULSE 71; TEMP 97.8
[2016-08-07 18:13] VITALS: BP 132/48; PULSE 77; TEMP 98.6
[2016-08-07 19:56] VITALS: BP 133/53; PULSE 67; TEMP 98
[2016-08-08 01:32] VITALS: BP 138/50; PULSE 79; TEMP 98.1
[2016-08-08 05:21] VITALS: BP 131/51; PULSE 75; TEMP 97.8
[2016-08-08 07:40] LABS: MEAN CELL VOLUME 98 fl (80.0-100.0); MEAN CORPUSCULAR HGB CONC 31 g/dl (33.0-37.0); MEAN PLATELET VOLUME 11.2 fl (7.4-10.4); PLATELET COUNT 147 K/mm3 (130-400); RED BLOOD COUNT 3.11 M/mm3 (4.10-5.30); WHITE BLOOD COUNT 6.9 K/mm3 (4.8-10.8)
[2016-08-08 08:22] LABS: HEMATOCRIT 30.5 % (37.0-47.0); HEMOGLOBIN 9.4 g/dl (12.5-16.0); MEAN CORPUSCULAR HEMOGLOBIN 30 pg (27.0-31.0)
[2016-08-08 08:23] LABS: ADD PATHOLOGY DIFF REVIEW NO
[2016-08-08 09:15] VITALS: BP 118/53; PULSE 74; TEMP 98.3
[2016-08-08] MEDS ORDERED: FERROUS SU325 MG/TAB PO (09:46)
[2016-08-08] MEDS ORDERED: XARELTO20 MG PO (09:50)
[2016-08-08] MEDS ORDERED: TYLENOL 325MG325 MG PO (09:53)
[2016-08-08] MEDS ORDERED: NEURONTIN300 MG/CAP PO (09:54)
[2016-08-08] MEDS ORDERED: PROTONIX 40MG T40 MG PO (09:55)
[2016-08-08] MEDS ORDERED: ANUSOL-HC SUPPO25 MG RC (09:55)
[2016-08-08 12:06] LABS: BAND 2 % (0-10); EOSINOPHIL 3 % (0-4); NEUTROPHILS 65 % (42.0-75.2); TOTAL CELLS COUNTED 100
[2016-08-08 12:07] LABS: ANISOCYTOSIS 3+; HYPOCHROMIA 1+; PLATELET ESTIMATE NORMAL (NORMAL); POLYCHROMASIA 1+
[2016-08-08] MEDS ORDERED: HCTZ12.5TAB PO (12:44)
[2016-08-08 13:38] VITALS: BP 118/53; PULSE 74; TEMP 98.3
== END 2016-08-08 15:21 | DRG 330 ==
LOC: ICU 11:24 → SURG 07-29 12:58
PROVIDERS: Family Medicine; Internal Medicine; Internal Medicine Cardiovascular Disease; Internal Medicine Gastroenterology; Nurse Practitioner Family; Physician Assistant; Surgery
PROC: 0DJ08ZZ Inspection of Upper Intestinal Tract, Via Natural or Artificial Opening Endoscopic (ICD-10-PCS; 2016-07-27)
PROC: 0WQF4ZZ Repair Abdominal Wall, Percutaneous Endoscopic Approach (ICD-10-PCS; 2016-07-28)
PROC: 0DBK8ZX Excision of Ascending Colon, Via Natural or Artificial Opening Endoscopic, Diagnostic (ICD-10-PCS; 2016-07-28)
PROC: 0DTF0ZZ Resection of Right Large Intestine, Open Approach (ICD-10-PCS; principal; 2016-07-28 08:15)
DX: C18.0 Malignant neoplasm of cecum (principal); D62 Acute posthemorrhagic anemia; I48.92 Unspecified atrial flutter; K92.1 Melena; D12.2 Benign neoplasm of ascending colon; I10 Essential (primary) hypertension; I48.0 Paroxysmal atrial fibrillation; K42.9 Umbilical hernia without obstruction or gangrene; Z86.711 Personal history of pulmonary embolism; Z79.01 Long term (current) use of anticoagulants; D69.6 Thrombocytopenia, unspecified; E86.1 Hypovolemia
CPT/HCPCS: 99223-AI; 99232-AI; 99233-AI; 99239; A4315; C1751; C1894; C9113; J0694; J1100; J1170; J1644; J1650; J1940; J2250; J2370; J2405; J2710; J3010; J7030; P9016; Q9967

== ENCOUNTER 2017-12-28 12:23 | Day surgery (SDC) | payer MEDICARE, BC ==
[~2017-12-28] VITALS: Ht 157.5 cm; Wt 82.8 kg
[~2017-12-28 12:23] MED LIST changes: +ANUSOL-HC SUPPO25 MG RC; +FERROUS SU325 MG/TAB PO; +HCTZ12.5TAB PO; +NEURONTIN300 MG/CAP PO; +PROTONIX 40MG T40 MG PO
[2017-12-28 12:44] VITALS: BP 184/61; PULSE 63; TEMP 97.6
[2017-12-28] MEDS ORDERED: COUMADIN 22.5 MG/TAB PO (13:17)
[2017-12-28] MEDS ORDERED: K-DUR20 MEQ PO (13:18)
[2017-12-28 16:41] VITALS: BP 182/75; PULSE 60; TEMP 97
[2017-12-28 19:57] VITALS: BP 159/62; PULSE 58; TEMP 97.6
[2017-12-29 00:01] VITALS: BP 158/59; PULSE 60
[2017-12-29 04:11] VITALS: BP 157/61; PULSE 53
[2017-12-29 06:57] LABS: BASO % 0.2 % (0.0-2.0); EOS # 0.1 (0.0-0.7); GRAN # 3.6 (1.4-6.5); GRAN % 65.4 % (42.2-75.2); HEMATOCRIT 36.1 % (37.0-47.0); HEMOGLOBIN 11.3 g/dl (12.5-16.0); LYMPH # 1.3 (1.2-3.4); LYMPH % 22.8 % (20.0-51.0); MEAN CELL VOLUME 99 fl (80.0-100.0); MEAN CORPUSCULAR HEMOGLOBIN 31 pg (27.0-31.0); MEAN CORPUSCULAR HGB CONC 31 g/dl (33.0-37.0); MEAN PLATELET VOLUME 11.8 fl (7.4-10.4); MONO # 0.5 (0.1-0.6); MONO % 9.2 % (1.7-9.3); PLATELET COUNT 140 K/mm3 (130-400); RED BLOOD COUNT 3.63 M/mm3 (4.10-5.30); REDCELL DISTRIBUTION WIDTH-CV 16.2 % (11.5-14.5)
[2017-12-29 07:05] LABS: CREATININE, serum 1.26 mg/dL (0.52-1.25)
[2017-12-29 09:15] VITALS: BP 182/66; PULSE 56
[2017-12-29 09:30] VITALS: BP 187/50; PULSE 58
[2017-12-29 09:45] VITALS: BP 189/74; PULSE 55
[2017-12-29 10:00] VITALS: BP 189/92; PULSE 56
== END 2017-12-29 11:32 | disposition home or self-care (01) ==
LOC: SURG 12:23 → SDCO 12:23 → MEDICAL 20:49 → SDCO 12-29 07:30
PROVIDERS: Surgery
DX: K63.5 Polyp of colon (principal); K57.30 Diverticulosis of large intestine without perforation or abscess without bleeding; D69.6 Thrombocytopenia, unspecified; I48.91 Unspecified atrial fibrillation; E03.9 Hypothyroidism, unspecified; I10 Essential (primary) hypertension; M10.9 Gout, unspecified; K21.9 Gastro-esophageal reflux disease without esophagitis; D64.9 Anemia, unspecified; Z90.49 Acquired absence of other specified parts of digestive tract; Z85.038 Personal history of other malignant neoplasm of large intestine; Z86.711 Personal history of pulmonary embolism; Z83.3 Family history of diabetes mellitus; Z82.49 Family history of ischemic heart disease and other diseases of the circulatory system; Z88.8 Allergy status to other drugs, medicaments and biological substances
CPT/HCPCS: OP; J2704

== ENCOUNTER 2018-05-12 19:11 | Emergency (ER) | payer MEDICARE, BC ==
[~2018-05-12] VITALS: Ht 157.5 cm; Wt 78.2 kg
[~2018-05-12 19:11] MED LIST changes: +COUMADIN 22.5 MG/TAB PO; +K-DUR20 MEQ PO
[2018-05-12 19:22] VITALS: TEMP 98
[2018-05-12 20:27] LABS: BASO % 0.5 % (0.0-2.0); EOS # 0.1 (0.0-0.7); EOS % 1.3 % (0-4.0); GRAN # 5.5 (1.4-6.5); GRAN % 69.9 % (42.2-75.2); HEMATOCRIT 40.1 % (37.0-47.0); HEMOGLOBIN 12.9 g/dl (12.5-16.0); LYMPH # 1.4 (1.2-3.4); LYMPH % 18.5 % (20.0-51.0); MEAN CELL VOLUME 96 fl (80.0-100.0); MEAN CORPUSCULAR HEMOGLOBIN 31 pg (27.0-31.0); MEAN CORPUSCULAR HGB CONC 32 g/dl (33.0-37.0); MEAN PLATELET VOLUME 11.8 fl (7.4-10.4); MONO # 0.7 (0.1-0.6); MONO % 9.4 % (1.7-9.3); PLATELET COUNT 182 K/mm3 (130-400); RED BLOOD COUNT 4.16 M/mm3 (4.10-5.30); REDCELL DISTRIBUTION WIDTH-CV 15.8 % (11.5-14.5)
[2018-05-12 20:37] LABS: ALBUMIN 4.2 gm/dL (3.5-5.0); BILIRUBIN,TOTAL 0.5 mg/dL (0.0-1.0); CALCIUM 9.3 mg/dL (8.4-10.2); CREATININE, serum 1.54 mg/dL (0.52-1.25); POTASSIUM 4.4 mmol/L (3.4-5.0); TOTAL PROTEIN 8.8 gm/dL (6.4-8.2)
[2018-05-12 20:46] LABS: INR 1.9 (0.8-3.0); PROTHROMBIN TIME 21.9 SECONDS (9.7-12.8)
[2018-05-12 20:48] LABS: TROPONIN-I 0.017 ng/mL (0.000-0.035)
[2018-05-12] MEDS ORDERED: CORDARONE200 MG/TAB PO (23:25)
[2018-05-12] MEDS ORDERED: COZAAR 50MG50 MG/TAB PO (23:40)
[2018-05-12 23:59] VITALS: BP 158/78; PULSE 68
== END 2018-05-12 23:59 | disposition home or self-care (01) ==
LOC: COL.ER 19:11
PROVIDERS: Emergency Medicine
DX: R53.1 Weakness (principal); I48.91 Unspecified atrial fibrillation; E03.9 Hypothyroidism, unspecified; K21.9 Gastro-esophageal reflux disease without esophagitis; I10 Essential (primary) hypertension; Z90.89 Acquired absence of other organs; Z79.01 Long term (current) use of anticoagulants; Z86.711 Personal history of pulmonary embolism; W19.XXXA Unspecified fall, initial encounter
CPT/HCPCS: J7040

== ENCOUNTER 2018-06-23 17:22 | Inpatient (IN) | payer MEDICARE, BC ==
[2018-06-23] VITALS (212 sets, daily range): BP systolic 174–216; BP diastolic 67–92; PULSE 42–83; TEMP 97.4–97.7; O2SAT 89–98
[~2018-06-23] VITALS: Ht 157.5 cm; Wt 80.6 kg
[~2018-06-23 17:22] MED LIST changes: +COZAAR 50MG50 MG/TAB PO
[2018-06-23 18:13] LABS: INR 1.7 (0.8-3.0); PROTHROMBIN TIME 19.7 SECONDS (9.7-12.8)
[2018-06-23 18:14] LABS: BASO % 0.3 % (0.0-2.0); EOS # 0.1 (0.0-0.7); EOS % 1.3 % (0-4.0); GRAN # 3.9 (1.4-6.5); GRAN % 61.9 % (42.2-75.2); HEMOGLOBIN 12.5 g/dl (12.5-16.0); LYMPH # 1.7 (1.2-3.4); LYMPH % 27.8 % (20.0-51.0); MEAN CELL VOLUME 101 fl (80.0-100.0); MEAN CORPUSCULAR HEMOGLOBIN 31 pg (27.0-31.0); MEAN CORPUSCULAR HGB CONC 31 g/dl (33.0-37.0); MEAN PLATELET VOLUME 13.4 fl (7.4-10.4); MONO # 0.5 (0.1-0.6); MONO % 8.4 % (1.7-9.3); PLATELET COUNT 135 K/mm3 (130-400); RED BLOOD COUNT 3.98 M/mm3 (4.10-5.30); REDCELL DISTRIBUTION WIDTH-CV 16.1 % (11.5-14.5)
[2018-06-23 18:15] LABS: ALANINE AMINOTRANSFERASE 18 U/L (9-52); ALBUMIN 4.3 gm/dL (3.5-5.0); ALKALINE PHOSPHATASE 91 U/L (50-136); ANION GAP 12 mmol/L (7-16); AST,SGOT 39 U/L (15-37); BILIRUBIN,TOTAL 0.5 mg/dL (0.0-1.0); BLOOD UREA NITROGEN 77 mg/dL (7-17); CALCIUM 9.4 mg/dL (8.4-10.2); CARBON DIOXIDE 20 mmol/L (22-30); CHLORIDE 108 mmol/L (98-107); CREATININE, serum 2.67 (0.52-1.25); GLUCOSE 104 mg/dL (74-106); MAGNESIUM 2.2 mg/dL (1.6-2.3); SODIUM 139 mmol/L (137-145); TOTAL PROTEIN 8.8 gm/dL (6.4-8.2)
[2018-06-23 18:22] LABS: POTASSIUM 7.1 mmol/L (3.4-5.0)
[2018-06-23 18:27] LABS: TROPONIN-I < 0.012 ng/mL (0.000-0.035)
[2018-06-24] VITALS (721 sets, daily range): BP systolic 121–238; BP diastolic 56–146; PULSE 47–67; TEMP 97.5–97.8; O2SAT 90–98
--- NOTE | 2018-06-24 02:52 | NUR ---
PATIENT IS STILL CURRENTLY HAVING EPISODES OF BRADYCARDIA. PATIENTS HEART RATE IS CURRENTLY 48 WITH DOPAMINE AT A RATE IF 4.2 MCG/KG/MIN. PATIENTS HEART RATE IS ANYWHERE BETWEEN 48 AND 63 BPM. WILL CONTINUE TO MONITOR PATIENT AND TITRATE WHEN POSSIBLE.
[2018-06-24 06:02] LABS: BASO % 0.1 % (0.0-2.0); EOS # 0.1 (0.0-0.7); EOS % 0.9 % (0-4.0); GRAN # 5.3 (1.4-6.5); GRAN % 69.4 % (42.2-75.2); HEMATOCRIT 39.3 % (37.0-47.0); HEMOGLOBIN 12.5 g/dl (12.5-16.0); LYMPH # 1.6 (1.2-3.4); LYMPH % 20.4 % (20.0-51.0); MEAN CELL VOLUME 99 fl (80.0-100.0); MEAN CORPUSCULAR HEMOGLOBIN 32 pg (27.0-31.0); MEAN CORPUSCULAR HGB CONC 32 g/dl (33.0-37.0); MEAN PLATELET VOLUME 13.2 fl (7.4-10.4); MONO # 0.7 (0.1-0.6); MONO % 8.9 % (1.7-9.3); PLATELET COUNT 113 K/mm3 (130-400); RED BLOOD COUNT 3.97 M/mm3 (4.10-5.30); REDCELL DISTRIBUTION WIDTH-CV 15.9 % (11.5-14.5)
[2018-06-24 06:15] LABS: CALCIUM 9.2 mg/dL (8.4-10.2); CREATININE, serum 1.9 (0.52-1.25); POTASSIUM 5.5 mmol/L (3.4-5.0)
--- NOTE | 2018-06-24 06:44 | NUR ---
CALLED DR. TOVAR TO UPDATE HIM ON PATIENTS CONDITION, FLUNCTUATING HEARTRATE AND HIGH BLOOD PRESSURE. DR. TOVAR STATED HE WOULD BE IN THIS MORNING AND WOULD DISCUSS PATIENTS PLAN OF CARE FROM THERE.
--- NOTE | 2018-06-24 07:24 | NUR ---
gave report to raymond snow.
--- NOTE | 2018-06-24 08:00 | NUR ---
Shift assessment complete at this time. Plan of care reviewed at bedside with patient. Additional time taken to address any other needs or concerns. Vitals stable. Dopamine gtt decreased to 2 mcg/kg/min. Denies pain or any other discomfort. Call light within reach. Bed in low position. Will continue to monitor.
--- NOTE | 2018-06-24 10:27 | NUR ---
Patient lives at home alone in [place], [place] and plans to return home upon her recovery and discharge. Patient' family including her daughter's (Malika Keating and Alexandro Canales) and her son (Dioni Alicea) live locally and help support the patient as needed. Patient uses a walker for mobility assistance as needed, her primary care physician is Dr. Pau De, her pharmacy is [email or web address], and she does have advance directives of healthcare completed. No further needs at this time and manager social media will follow up as needed.
--- NOTE | 2018-06-24 10:28 | NUR ---
Dr. Gamboa at bedside to see Pt. Pt now in sinus rhythm and dizziness resolving. Recommends transfer for pacemaker placement today joshua Pt is stable on Dopamine. Holding coumadin and will contact Dr. Meneses.
--- NOTE | 2018-06-24 10:45 | NUR ---
Dr. Meneses at bedside to see patient.
--- NOTE | 2018-06-24 12:00 | NUR ---
Pt resting comfortably in bed. Denies pain or any other discomfort. Vitals stable at this time on Dopamine gtt. Will continue to monitor. Dr. Meneses in process of facilitating transfer to [facility].
--- NOTE | 2018-06-24 13:40 | NUR ---
EMS arrived at 1300 to transport Pt to [facility]. Pt departed at 1315 with Dopamine gtt infusing. Report called to Joaquina Pool RN at [facility] at 1317. Family notified of Pt departure at 1320.
== END 2018-06-24 13:15 | disposition short-term general hospital (02) | DRG 309 ==
LOC: COL.ER 17:22 → ICU 18:29
PROVIDERS: Emergency Medicine; Nurse Practitioner; ADMIT Hospitalist
DX: I44.0 Atrioventricular block, first degree (principal); N17.9 Acute kidney failure, unspecified; I10 Essential (primary) hypertension; E87.5 Hyperkalemia; I48.0 Paroxysmal atrial fibrillation; E03.9 Hypothyroidism, unspecified; Z86.711 Personal history of pulmonary embolism; Z79.01 Long term (current) use of anticoagulants; E78.5 Hyperlipidemia, unspecified; Z85.030 Personal history of malignant carcinoid tumor of large intestine
CPT/HCPCS: 99223-AI; J0610; J1265; J1815; J1940; J7030

== ENCOUNTER → 2018-06-30 | Outpatient (REF) ==
[2018-06-30 09:52] LABS: CALCIUM 8.7 mg/dL (8.4-10.2); CREATININE, serum 0.96 (0.52-1.25); POTASSIUM 4.1 mmol/L (3.4-5.0)
== END ==
LOC: ZCOL.LAB 09:42
PROVIDERS: Family Medicine
DX: I12.9 Hypertensive chronic kidney disease with stage 1 through stage 4 chronic kidney disease, or unspecified chronic kidney disease (principal); N18.2 Chronic kidney disease, stage 2 (mild); E87.5 Hyperkalemia

== ENCOUNTER 2019-03-16 13:06 | Inpatient (IN) | payer MEDICARE, BC ==
[~2019-03-16] VITALS: Ht 157.5 cm; Wt 81.5 kg
--- NOTE | 2019-03-16 14:24 | NUR ---
20 guage IV started in right hand, flushes well, Pt tolerated procedure well.
[2019-03-16 15:11] LABS: BASO % 0.3 % (0.0-2.0); EOS # 0.1 (0.0-0.7); EOS % 1.4 % (0-4.0); GRAN # 6.4 (1.4-6.5); GRAN % 70.7 % (42.2-75.2); HEMOGLOBIN 10.9 g/dl (12.5-16.0); LYMPH # 1.6 (1.2-3.4); MEAN CELL VOLUME 99 fl (80.0-100.0); MEAN CORPUSCULAR HEMOGLOBIN 31 pg (27.0-31.0); MEAN CORPUSCULAR HGB CONC 31 g/dl (33.0-37.0); MEAN PLATELET VOLUME 11.7 fl (7.4-10.4); MONO # 0.9 (0.1-0.6); MONO % 10.2 % (1.7-9.3); PLATELET COUNT 151 K/mm3 (130-400); RED BLOOD COUNT 3.53 M/mm3 (4.10-5.30); REDCELL DISTRIBUTION WIDTH-CV 16.4 % (11.5-14.5)
[2019-03-16 15:12] LABS: INR 2.4 (0.8-3.0)
[2019-03-16 15:14] LABS: HEMATOCRIT 34.9 % (37.0-47.0)
[2019-03-16 15:18] LABS: BILIRUBIN,TOTAL 0.6 mg/dL (0.0-1.0); CREATININE, serum 1.53 (0.52-1.25); TOTAL PROTEIN 8.7 gm/dL (6.4-8.2)
[2019-03-16 15:59] LABS: COLLECTION METHOD CLEAN CATCH
[2019-03-16 16:08] LABS: PH 6 (5-8); SQUAMOUS EPITHELIAL 0-2 /hpf; URINE APPEARANCE Clear; URINE BACTERIA Rare /hpf; URINE BILIRUBIN Negative (NEGATIVE); URINE BLOOD Negative (NEGATIVE); URINE COLOR Yellow; URINE GLUCOSE Negative (NEGATIVE); URINE KETONE Negative (NEGATIVE); URINE LEUKOCYTE ESTERASE 2+ (NEGATIVE); URINE NITRATE Negative (NEGATIVE); URINE PROTEIN(semi-quant) Negative (NEGATIVE); URINE RBC 0-2 /hpf; URINE UROBILINOGEN Negative (NEGATIVE)
[2019-03-16] MEDS ORDERED: ALCALAK (16:49)
[2019-03-16] MEDS ORDERED: TYLENOL 325MG325 MG (16:49)
[2019-03-16] MEDS ORDERED: PRINIVIL5 MG PO (16:51)
[2019-03-16] MEDS ORDERED: IMODIUM 2MG CAPS2 MG (16:51)
--- NOTE | 2019-03-16 17:40 | NUR ---
Patient up from ER
[2019-03-16 18:03] VITALS: BP 159/50; PULSE 65; TEMP 98
[2019-03-16] MEDS ORDERED: LASIX 40MG TABL40 MG PO (19:03)
[2019-03-16] MEDS ORDERED: COUMADIN 2MG2 MG/TAB PO (19:06)
[2019-03-16] MEDS ORDERED: VANICREAM LITE240 ML TP (19:08)
[2019-03-16 19:37] VITALS: BP 148/53; PULSE 64; TEMP 98.4
--- NOTE | 2019-03-16 21:27 | NUR ---
Pt resting in bed comfortably. Alert and oriented with VSS. Patient is a x1 assist, to bedside commode. Denies pain right now but states she is moving her pain is in left hip. Has mild BLE swelling, and right foot swelling (non-pitting). Patient had a fall today at home. No fx or broken bones. Was found to have UTI. Tx with rocephin in ER. Denies needs at this time. Call light within reach, will continue to monitor
[2019-03-16 23:03] VITALS: BP 142/49; PULSE 65; TEMP 98.2
--- NOTE | 2019-03-17 02:10 | NUR ---
Pt called and reported she felt her IV was leaking. Went in room and IV was pulled out, tip intact. Restarted 22g in right hand with no issues.
[2019-03-17 03:27] VITALS: BP 148/52; PULSE 67; TEMP 97.9
[2019-03-17 05:55] LABS: BASO % 0.3 % (0.0-2.0); EOS # 0.2 (0.0-0.7); EOS % 2.7 % (0-4.0); GRAN # 4.3 (1.4-6.5); GRAN % 62.2 % (42.2-75.2); LYMPH # 1.6 (1.2-3.4); LYMPH % 23.7 % (20.0-51.0); MEAN CELL VOLUME 99 fl (80.0-100.0); MEAN CORPUSCULAR HGB CONC 31 g/dl (33.0-37.0); MEAN PLATELET VOLUME 11.7 fl (7.4-10.4); MONO # 0.7 (0.1-0.6); MONO % 10.7 % (1.7-9.3); PLATELET COUNT 135 K/mm3 (130-400); RED BLOOD COUNT 3.16 M/mm3 (4.10-5.30); REDCELL DISTRIBUTION WIDTH-CV 16.3 % (11.5-14.5)
[2019-03-17 05:59] LABS: HEMATOCRIT 31.3 % (37.0-47.0); HEMOGLOBIN 9.8 g/dl (12.5-16.0); MEAN CORPUSCULAR HEMOGLOBIN 31 pg (27.0-31.0)
[2019-03-17 06:01] LABS: INR 2.5 (0.8-3.0); PROTHROMBIN TIME 30.5 SECONDS (9.7-12.8)
[2019-03-17 06:07] LABS: CALCIUM 8.1 mg/dL (8.4-10.2); CREATININE, serum 1.3 (0.52-1.25); POTASSIUM 3.8 mmol/L (3.4-5.0)
[2019-03-17 06:33] LABS: TSH w REFLEX 2.95 uIU/mL (0.465-4.680)
[2019-03-17 07:37] VITALS: BP 148/56; PULSE 62; TEMP 97.5
--- NOTE | 2019-03-17 08:30 | NUR ---
Medicated with [place] for c/o left hip pain with ambulation. Walks slowly with walker and one assist.
[2019-03-17 12:38] VITALS: BP 153/54; PULSE 63; TEMP 98
[2019-03-17 14:38] VITALS: BP 148/51; PULSE 64; TEMP 97.6
--- NOTE | 2019-03-17 18:00 | NUR ---
Sitting up in recliner chair. Denied need for pain medication this PM. Ambulating with walker and assist.
[2019-03-17 19:23] VITALS: BP 147/75; PULSE 73; TEMP 97.4
--- NOTE | 2019-03-17 20:12 | NUR ---
Pt doing well. Laying in bed. x1 assist to bathroom, seems to be getting stronger. voiding well. Alert and oriented with VSS. Still has some left hip pain but says it is getting better. Fluids runniing at 75/hr. UTI and treating with abx. Denies needs at this time. Call light within reach, will continue to monitor
[2019-03-18 00:35] VITALS: BP 143/53; PULSE 75; TEMP 98
--- NOTE | 2019-03-18 01:23 | NUR ---
pt called to sit up at side of bed. stated she was terribly itchy. nurse looked at patient and had rash all over body that was worsening. reddened dry rash all over body. prn benadryl, steroid cream, and steroid given. pt given shower with just water to help with itching. after receiving prn meds and shower, patient states she feels a lot better. call light within reach, will continue to monitor
[2019-03-18 04:01] VITALS: BP 108/53; PULSE 59; TEMP 97.3
--- NOTE | 2019-03-18 04:14 | NUR ---
Pt states she feels a lot better. Errhythema on rash has decreased. Itchiness has decreased. Denies needs at this time. Call light within reach, will continue to monitor
[2019-03-18 06:48] LABS: INR 2.1 (0.8-3.0); PROTHROMBIN TIME 25.2 SECONDS (9.7-12.8)
[2019-03-18 06:53] LABS: BASO % 0.1 % (0.0-2.0); EOS % 0.3 % (0-4.0); GRAN # 8.2 (1.4-6.5); GRAN % 84.5 % (42.2-75.2); LYMPH # 1.2 (1.2-3.4); LYMPH % 12.2 % (20.0-51.0); MEAN CELL VOLUME 101 fl (80.0-100.0); MEAN CORPUSCULAR HEMOGLOBIN 31 pg (27.0-31.0); MEAN CORPUSCULAR HGB CONC 31 g/dl (33.0-37.0); MONO # 0.2 (0.1-0.6); MONO % 2.5 % (1.7-9.3); PLATELET COUNT 144 K/mm3 (130-400); RED BLOOD COUNT 3.22 M/mm3 (4.10-5.30); REDCELL DISTRIBUTION WIDTH-CV 16.6 % (11.5-14.5)
[2019-03-18 06:57] LABS: HEMATOCRIT 32.4 % (37.0-47.0)
[2019-03-18 06:58] LABS: CALCIUM 8.5 mg/dL (8.4-10.2); CREATININE, serum 1.69 (0.52-1.25); POTASSIUM 4.9 mmol/L (3.4-5.0)
[2019-03-18 07:56] VITALS: BP 108/53; PULSE 61; TEMP 97.6
--- NOTE | 2019-03-18 10:00 | NUR ---
Patient alert and oriented, answers questions appropriately. See assessment. No c/o pain or discomfort, able to move all extremeties. No c/o urinary burning, frequency or hesitancy. No other c/o at this time.
[2019-03-18 11:42] VITALS: BP 133/61; PULSE 63; TEMP 97.5
--- NOTE | 2019-03-18 14:16 | NUR ---
First visit from the relief pharmacist. prayed with patient. No other needs right now.
--- NOTE | 2019-03-18 14:18 | NUR ---
RICHA met with the patient and her daughter, Malika Unger ([phone]), to discuss discharge plan. The patient lives in [place] with her son, Rodney. She reports needing occasional assistance with bathing and has a walker. She states that her son with be stand by when she bathes. The patient's PCP is Dr. Pau De and [facility]. She reports no difficulties obtaining her meds. The patient's advanced directives are in EMR. Her DPOA-HC is her daughter's: Malika Unger, Elsijluis Canales, and Radha Paredes. The patient's daughter, Malika, reports that she has some concerns with the patient returning straight home after discharge. She states that she is interested in SNF for the patient. The patient was also in agreeance to this. RICHA presented and explained the Patient Choice Form and provided them with Medicare.gov's list of SNF's in the [place] area. The patient and her daughter chose 1) [facility] 2) [facility]. Patient Choice Form signed by the patient and she was provided a copy. RICHA contacted and faxed a referral to both facilities. SW awaiting their screens. The patient states that she is also interested in switching her primary care to a clinic closer to her home and preferred Dr. Redd. RICHA contacted Dr. Ribera's office. The guest relations receptionist states that Dr. Ribera would follow her care at [facility] and he would then speak to the patient about following her care after her stay at [facility]. RICHA to update the patient and her daughter.
--- NOTE | 2019-03-18 14:33 | NUR ---
Coral, at [facility], reports that they are able to accept the patient for a skilled stay. SW to inform the patient and her daughter and will continue to follow.
[2019-03-18 16:12] VITALS: BP 143/69; PULSE 66; TEMP 98
[2019-03-18 20:00] VITALS: BP 137/63; PULSE 67; TEMP 97.7
[2019-03-19] VITALS: BP 171/68; PULSE 73; TEMP 97.7
--- NOTE | 2019-03-19 01:15 | NUR ---
Patient has rested well so far this shift. Up to the bathroom with stand-by assist from staff. Utilizes walker for ambulation. Urine noted to be clear with no malodor. Patient stated she was itchy and requested benadryl. This was given and effective. Denies any further needs. Will continue to monitor.
[2019-03-19 04:00] VITALS: BP 144/63; PULSE 79; TEMP 97.8
[2019-03-19 07:30] VITALS: BP 167/55; PULSE 60; TEMP 97.4
[2019-03-19 08:00] LABS: INR 1.7 (0.8-3.0); PROTHROMBIN TIME 19.6 SECONDS (9.7-12.8)
[2019-03-19 08:03] LABS: CALCIUM 8.8 mg/dL (8.4-10.2); CREATININE, serum 1.23 (0.52-1.25); POTASSIUM 4.7 mmol/L (3.4-5.0)
--- NOTE | 2019-03-19 08:21 | NUR ---
Patient ambulates to bathroom. Gait slow and steady. Voids without difficulty. Returns to room and sits up in chair. Generalized body rash noted that is red. Patient says that it is occasionally itchy. Denies pain at this time. Patient says that she has heard rumors that she may go home today. Explain that I have not heard if she is or not as of yet. Denies further needs at this time.
--- NOTE | 2019-03-19 09:38 | NUR ---
Bed bath provided to the patient and skin care performed. Patient tolerates well. Applied Aristocort cream to areas of irritation. Patient sitting up in chair. Bed linens were changed. Patient denies further needs. Family in room with the patient.
--- NOTE | 2019-03-19 11:31 | NUR ---
Ambulates to bathroom and back to chair. Complains of soreness in her hips and requests Tylenol. Tylenol administered as prescribed. Patient denies further needs at this time.
[2019-03-19 11:35] VITALS: BP 138/59; PULSE 65; TEMP 98.3
[2019-03-19] MEDS ORDERED: AMOXICILLIN/CLA1 TA1 PO (14:34)
[2019-03-19] MEDS ORDERED: COUMADIN 2MG2 MG/TAB PO (14:35)
[2019-03-19] MEDS ORDERED: COUMADIN 3MG3 MG/TAB PO (14:35)
[2019-03-19] MEDS ORDERED: TYLENOL 325MG325 MG PO (14:36)
--- NOTE | 2019-03-19 14:38 | NUR ---
The patient is to discharge today, 03/19, to [facility] or a skilled stay. Transportation was scheduled for 1545, via [facility]. RICHA informed the patient, patient's daughter, and her RN. They were all in agreeance to the time. RICHA also presented and explained the IM form to the patient. The patient verbalized understanding, signed, and she was provided a copy. No additional needs at this time.
--- NOTE | 2019-03-19 15:40 | NUR ---
[facility]
--- NOTE | 2019-03-19 16:15 | NUR ---
Patient discharged with [facility] staff via wheelchair.
== END 2019-03-19 16:15 | DRG 682 ==
LOC: COL.ER 13:06 → SURG 16:33
PROVIDERS: Emergency Medicine; Physician Assistant; ADMIT Internal Medicine
DX: N17.9 Acute kidney failure, unspecified (principal); J96.90 Respiratory failure, unspecified, unspecified whether with hypoxia or hypercapnia; N39.0 Urinary tract infection, site not specified; B96.4 Proteus (mirabilis) (morganii) as the cause of diseases classified elsewhere; E78.5 Hyperlipidemia, unspecified; E03.9 Hypothyroidism, unspecified; H40.9 Unspecified glaucoma; I48.91 Unspecified atrial fibrillation; S70.02XA Contusion of left hip, initial encounter; W17.89XA Other fall from one level to another, initial encounter; M81.0 Age-related osteoporosis without current pathological fracture; N18.9 Chronic kidney disease, unspecified; I12.9 Hypertensive chronic kidney disease with stage 1 through stage 4 chronic kidney disease, or unspecified chronic kidney disease; L50.8 Other urticaria; Z79.01 Long term (current) use of anticoagulants; Z86.711 Personal history of pulmonary embolism; Z95.0 Presence of cardiac pacemaker; Z88.8 Allergy status to other drugs, medicaments and biological substances; Y93.89 Activity, other specified; Y92.89 Other specified places as the place of occurrence of the external cause; Y99.8 Other external cause status
CPT/HCPCS: 99222-AI; 99231-AI; 99233-AI; 99239; A4216; J0696; J1200; J2930; J3010; J7030

== ENCOUNTER → 2019-03-25 | Outpatient (CLI) | payer MEDICARE, BC ==
[~2019-03-25] MED LIST changes: +ALCALAK; +AMOXICILLIN/CLA1 TA1 PO; +COUMADIN 2MG2 MG/TAB PO; +COUMADIN 3MG3 MG/TAB PO; +IMODIUM 2MG CAPS2 MG; +LASIX 40MG TABL40 MG PO; +PRINIVIL5 MG PO; +TYLENOL 325MG325 MG; +VANICREAM LITE240 ML TP
== END ==
LOC: COL.RAD 13:05
DX: M16.12 Unilateral primary osteoarthritis, left hip (principal)

== ENCOUNTER → 2019-03-28 | Outpatient (CLI) | payer MEDICARE, BC ==
[2019-03-28 08:26] LABS: COLLECTION METHOD CLEAN CATCH
[2019-03-28 08:38] LABS: PH 5 (5-8); SQUAMOUS EPITHELIAL 0-2 /hpf; URINE APPEARANCE Clear; URINE BACTERIA None Seen /hpf; URINE BILIRUBIN Negative (NEGATIVE); URINE BLOOD Negative (NEGATIVE); URINE COLOR Yellow; URINE GLUCOSE Negative (NEGATIVE); URINE KETONE Negative (NEGATIVE); URINE LEUKOCYTE ESTERASE Negative (NEGATIVE); URINE NITRATE Negative (NEGATIVE); URINE PROTEIN(semi-quant) Negative (NEGATIVE); URINE RBC 0-2 /hpf; URINE UROBILINOGEN Negative (NEGATIVE); URINE WBC 0-2 /hpf
== END ==
LOC: ZCOL.LAB 08:02
PROVIDERS: Internal Medicine
DX: R82.90 Unspecified abnormal findings in urine (principal)

== ENCOUNTER → 2019-04-15 | Outpatient (CLI) | payer MEDICARE, BC | LOC: COL.RAD 09:38 | DX: C18.9 Malignant neoplasm of colon, unspecified (principal); I51.7 Cardiomegaly; N26.1 Atrophy of kidney (terminal); M47.817 Spondylosis without myelopathy or radiculopathy, lumbosacral region; I26.99 Other pulmonary embolism without acute cor pulmonale | CPT/HCPCS: Q9967 ==

== ENCOUNTER 2019-07-27 12:03 | Emergency (ER) | payer MEDICARE, BC ==
[~2019-07-27] VITALS: Ht 157.5 cm; Wt 80.0 kg
[2019-07-27 12:03] VITALS: TEMP 97.8
[2019-07-27 12:28] LABS: BASO % 0.3 % (0.0-2.0); EOS # 0.1 (0.0-0.7); GRAN # 4.9 (1.4-6.5); GRAN % 72.6 % (42.2-75.2); HEMOGLOBIN 11.1 g/dl (12.5-16.0); LYMPH # 1.2 (1.2-3.4); LYMPH % 17.6 % (20.0-51.0); MEAN CELL VOLUME 96 fl (80.0-100.0); MEAN CORPUSCULAR HEMOGLOBIN 30 pg (27.0-31.0); MEAN CORPUSCULAR HGB CONC 31 g/dl (33.0-37.0); MEAN PLATELET VOLUME 11.2 fl (7.4-10.4); MONO # 0.6 (0.1-0.6); MONO % 8.1 % (1.7-9.3); PLATELET COUNT 159 K/mm3 (130-400); RED BLOOD COUNT 3.75 M/mm3 (4.10-5.30); REDCELL DISTRIBUTION WIDTH-CV 16.8 % (11.5-14.5)
[2019-07-27 12:38] LABS: ALANINE AMINOTRANSFERASE 49 U/L (4-34); ALBUMIN 4.3 gm/dL (3.5-5.0); ALKALINE PHOSPHATASE 168 U/L (50-136); ANION GAP 11 mmol/L (7-16); AST,SGOT 68 U/L (15-37); BILIRUBIN,TOTAL 0.7 mg/dL (0.0-1.0); BLOOD UREA NITROGEN 21 mg/dL (7-17); C-REACTIVE PROTEIN 1.8 mg/dL (0.0-0.9); CALCIUM 9.1 mg/dL (8.4-10.2); CARBON DIOXIDE 24 mmol/L (22-30); CHLORIDE 103 mmol/L (98-107); CREATININE, serum 1.02 (0.52-1.25); GLUCOSE 130 mg/dL (74-106); POTASSIUM 4.2 mmol/L (3.4-5.0); SODIUM 139 mmol/L (137-145); TOTAL PROTEIN 9.4 gm/dL (6.4-8.2)
[2019-07-27 12:41] LABS: COLLECTION METHOD CLEAN CATCH
[2019-07-27 12:47] LABS: INR 2.3 (0.8-3.0)
[2019-07-27 12:49] LABS: TROPONIN-I < 0.012 ng/mL (0.000-0.035)
[2019-07-27 12:55] LABS: MUCOUS Present /lpf; PH 6 (5-8); SQUAMOUS EPITHELIAL 0-2 /hpf; URINE APPEARANCE Clear; URINE BACTERIA None Seen /hpf; URINE BILIRUBIN Negative (NEGATIVE); URINE BLOOD Negative (NEGATIVE); URINE COLOR Yellow; URINE GLUCOSE Negative (NEGATIVE); URINE KETONE Negative (NEGATIVE); URINE LEUKOCYTE ESTERASE Negative (NEGATIVE); URINE NITRATE Negative (NEGATIVE); URINE PROTEIN(semi-quant) Negative (NEGATIVE); URINE RBC 0-2 /hpf; URINE UROBILINOGEN Negative (NEGATIVE)
[2019-07-27] MEDS ORDERED: LASIX 20MG TABL20 MG PO (13:18)
[2019-07-27] MEDS ORDERED: PRINIVIL10 MG PO (13:24)
[2019-07-27] MEDS ORDERED: COUMADIN 1MG1 MG/TAB (13:27)
[2019-07-27] MEDS ORDERED: COUMADIN 3MG3 MG/TAB PO (13:28)
[2019-07-27 13:50] LABS: ERYTHROCYTE SEDIMENTATION RATE 37 mm/hr (0-30)
[2019-07-27] MEDS ORDERED: NORCO 325 MG-51 TAB PO ×3 (15:02→16:09)
[2019-07-27] MEDS ORDERED: PREDNISONE10 MG PO ×3 (15:08→16:09)
[2019-07-27 15:20] VITALS: BP 166/74; PULSE 60
== END 2019-07-27 15:40 | disposition home or self-care (01) ==
LOC: COL.ER 12:03
PROVIDERS: Emergency Medicine
DX: M25.511 Pain in right shoulder (principal); I10 Essential (primary) hypertension; I48.91 Unspecified atrial fibrillation; Z79.01 Long term (current) use of anticoagulants
CPT/HCPCS: J3010; J7512

== ENCOUNTER 2019-07-29 13:58 | Emergency (ER) | payer MEDICARE, BC ==
[~2019-07-29] VITALS: Ht 157.5 cm; Wt 78.6 kg
[~2019-07-29 13:58] MED LIST changes: +COUMADIN 1MG1 MG/TAB; +NORCO 325 MG-51 TAB PO; +PREDNISONE10 MG PO; +PRINIVIL10 MG PO
[2019-07-29 14:25] VITALS: BP 189/81; TEMP 97.3
[2019-07-29] MEDS ORDERED: NORCO 325 MG-51 TAB PO (14:55)
[2019-07-29] MEDS ORDERED: PREDNISONE10 MG PO (15:29)
[2019-07-29 15:37] VITALS: PULSE 95
== END 2019-07-29 15:37 | disposition home or self-care (01) ==
LOC: COL.ER 13:58
DX: M54.12 Radiculopathy, cervical region (principal); Z79.01 Long term (current) use of anticoagulants
CPT/HCPCS: J2550; J3010; J7512

== ENCOUNTER → 2019-08-23 | Outpatient (CLI) | payer MEDICARE, BC ==
[2019-08-23 17:52] LABS: BASO % 0.2 % (0.0-2.0); EOS # 0.1 (0.0-0.7); EOS % 2.2 % (0-4.0); GRAN # 3.8 (1.4-6.5); GRAN % 68.2 % (42.2-75.2); HEMOGLOBIN 10.1 g/dl (12.5-16.0); LYMPH # 1.1 (1.2-3.4); LYMPH % 19.3 % (20.0-51.0); MEAN CELL VOLUME 99 fl (80.0-100.0); MEAN CORPUSCULAR HEMOGLOBIN 30 pg (27.0-31.0); MEAN CORPUSCULAR HGB CONC 30 g/dl (33.0-37.0); MONO # 0.5 (0.1-0.6); MONO % 9.7 % (1.7-9.3); PLATELET COUNT 175 K/mm3 (130-400); RED BLOOD COUNT 3.37 M/mm3 (4.10-5.30); REDCELL DISTRIBUTION WIDTH-CV 18.2 % (11.5-14.5)
[2019-08-23 17:57] LABS: CALCIUM 8.8 mg/dL (8.4-10.2); CREATININE, serum 1.32 (0.52-1.25); POTASSIUM 3.8 mmol/L (3.4-5.0)
[2019-08-23 17:58] LABS: HEMATOCRIT 33.2 % (37.0-47.0)
== END ==
LOC: ZCOL.LAB 17:36
PROVIDERS: Nurse Practitioner Family
DX: L03.115 Cellulitis of right lower limb (principal); I50.31 Acute diastolic (congestive) heart failure; L03.116 Cellulitis of left lower limb

== ENCOUNTER 2019-12-16 11:29 | Emergency (ER) | payer MEDICARE, BC ==
[~2019-12-16] VITALS: Ht 157.5 cm; Wt 77.7 kg
[2019-12-16 14:29] LABS: BASO % 0.3 % (0.0-2.0); EOS # 0.1 (0.0-0.7); EOS % 1.6 % (0-4.0); GRAN # 5.1 (1.4-6.5); GRAN % 72.4 % (42.2-75.2); LYMPH # 1.1 (1.2-3.4); LYMPH % 15.9 % (20.0-51.0); MEAN CELL VOLUME 92 fl (80.0-100.0); MEAN CORPUSCULAR HGB CONC 31 g/dl (33.0-37.0); MEAN PLATELET VOLUME 11.6 fl (7.4-10.4); MONO # 0.7 (0.1-0.6); MONO % 9.4 % (1.7-9.3); PLATELET COUNT 162 K/mm3 (130-400); RED BLOOD COUNT 3.43 M/mm3 (4.10-5.30); REDCELL DISTRIBUTION WIDTH-CV 16.6 % (11.5-14.5)
[2019-12-16 14:31] LABS: CALCIUM 8.6 mg/dL (8.4-10.2); CREATININE, serum 1.18 (0.52-1.25); POTASSIUM 4.1 mmol/L (3.4-5.0)
[2019-12-16 14:39] LABS: HEMATOCRIT 31.6 % (37.0-47.0); HEMOGLOBIN 9.8 g/dl (12.5-16.0); MEAN CORPUSCULAR HEMOGLOBIN 29 pg (27.0-31.0)
[2019-12-16 14:46] LABS: INR 2.1 (0.8-3.0); PROTHROMBIN TIME 23.9 SECONDS (9.7-12.8)
[2019-12-16 14:48] VITALS: BP 162/74; PULSE 63; TEMP 97.6
== END 2019-12-16 15:26 | disposition home or self-care (01) ==
LOC: COL.ER 11:29
PROVIDERS: Emergency Medicine
DX: S00.83XA Contusion of other part of head, initial encounter (principal); S40.022A Contusion of left upper arm, initial encounter; Z86.79 Personal history of other diseases of the circulatory system; Z79.01 Long term (current) use of anticoagulants; Y92.009 Unspecified place in unspecified non-institutional (private) residence as the place of occurrence of the external cause; W01.10XA Fall on same level from slipping, tripping and stumbling with subsequent striking against unspecified object, initial encounter

== ENCOUNTER 2020-03-08 21:56 | Emergency (ER) | payer MEDICARE, BC ==
[~2020-03-08] VITALS: Ht 162.6 cm; Wt 86.4 kg
[2020-03-08 21:58] VITALS: BP 187/104; TEMP 97.9
[2020-03-08] MEDS ORDERED: LIDODERM 5% PATC1 EA TP (23:28)
[2020-03-08] MEDS ORDERED: VOLTAREN GEL 1%1 TU TP (23:28)
[2020-03-09] VITALS: PULSE 76
--- NOTE | 2020-03-09 14:45 | NUR ---
bench worker contacted patient's daugher, Malika Unger [phone], as patient presented to ED on 03/08/2020 with a fractured shoulder. Patient was at home when she fell suffering above injury. Patient is currently staying at daughter, Malika Unger's address at [address] [place] [address]. Malika states that she and patient are agreeable to home health and chose [facility] as patient used them previously. Worker gave [facility] a referral and faxed clinical information. Worker contacted Dr Redd's nurse, Malika Marsh, and advised of the above information. Malika Marsh stated she would send [facility] orders for home health. Worker requested [facility] see patient on 03/10/2020.
--- NOTE | 2020-03-10 08:46 | NUR ---
steelworker contacted patient's daughter, Malika and advised that Dr Redd will write home health orders and that [facility] will be out to see patient today. Malika verbalized appreciation for the above assistance.
== END 2020-03-09 00:08 | disposition home or self-care (01) ==
LOC: COL.ER 21:56
DX: S42.212A Unspecified displaced fracture of surgical neck of left humerus, initial encounter for closed fracture (principal); I10 Essential (primary) hypertension; I48.91 Unspecified atrial fibrillation; Z95.0 Presence of cardiac pacemaker; Z86.718 Personal history of other venous thrombosis and embolism; Z86.711 Personal history of pulmonary embolism; Z90.89 Acquired absence of other organs; Z79.01 Long term (current) use of anticoagulants; W07.XXXA Fall from chair, initial encounter; Y92.009 Unspecified place in unspecified non-institutional (private) residence as the place of occurrence of the external cause

== ENCOUNTER 2020-03-20 13:35 | Outpatient (CLI) | payer MEDICARE, BC ==
[~2020-03-20] VITALS: Ht 157.5 cm; Wt 75.5 kg
[~2020-03-20 13:35] MED LIST changes: +LIDODERM 5% PATC1 EA TP; +ULTRAM 50MG TAB50 MG PO; +VOLTAREN GEL 1%1 TU TP
[2020-03-20 14:36] VITALS: BP 158/62; PULSE 60; TEMP 98.5
[2020-03-20 14:50] VITALS: BP 155/63; PULSE 60; TEMP 98.3
--- NOTE | 2020-03-20 15:02 | NUR ---
Small edema noted at rt AC IV site. AInfusion stopped, 45ml have infused. IV DC'd with catheter intact. New site started to rt hand with #24 IV.
[2020-03-20 15:30] VITALS: BP 150/63; PULSE 60
[2020-03-20 16:09] VITALS: BP 165/65; PULSE 67; TEMP 98.1
[2020-03-20 16:30] VITALS: BP 162/61; PULSE 60
[2020-03-20 16:48] VITALS: BP 142/69; PULSE 60
--- NOTE | 2020-03-20 17:00 | NUR ---
Pt tolerates infusion without issue. She is assisted out to daughter's car.
== END 2020-03-20 17:00 | disposition home or self-care (01) ==
LOC: EUO 13:35
DX: U07.1 COVID-19 (principal)
CPT/HCPCS: J7050